=== PATIENT | male | born 1965 | race Hispanic/Latino ===

== ENCOUNTER 2024-05-25 06:40 | Emergency (ER) | payer BC ==
[~2024-05-25] VITALS: Ht 167.6 cm; Wt 83.9 kg
[2024-05-25] MEDS: KETOROLAC 15MG/ML VIAL (15MG/ML) IM ONE (08:12)
[2024-05-25] MEDS ORDERED: IBUP-2071 PO (10:42)
[2024-05-25] MEDS ORDERED: PRED20TA3 PO (10:44)
[2024-05-25] MEDS: SOLU-MEDROL 125MG VIAL IM ONE (10:52)
[2024-05-25 11:01] VITALS: BP 125/73; PULSE 64; RESP 16; O2SAT 98
== END 2024-05-25 11:32 | disposition home or self-care (01) ==
LOC: EDH 06:40
DX: M17.12 Unilateral primary osteoarthritis, left knee (principal); M25.462 Effusion, left knee; Z79.899 Other long term (current) drug therapy
CPT/HCPCS: 99285; 29505; 72131; 93971; 73564; 96372 ×2; J2919; J1885